=== PATIENT | male | born 1990 | race Caucasian/White ===

== ENCOUNTER 2018-04-04 16:18 | Emergency (ER) | payer SELFPAY ==
[2018-04-04 16:33] VITALS: BP 129/77; PULSE 77; TEMP 98.5; BMI 27.4
--- NOTE | 2018-04-04 17:00 | PDOC ---
History of Present Illness - History of Present Illness Initial Comments: 04/04/18 16:58 Physical exam: Alert and oriented well-developed well-nourished no acute distress cheerful and cooperative Afebrile, vital signs normal Head atraumatic. There is no evidence of a bruise, contusion, hematoma, abrasion , or laceration PERRLA 4 mm, fundi benign with sharp disc margins and good central venous pulsations. EOMs full without diplopia. Visual carrillo intact confrontation. ENT clear Neck without point tenderness or deformity, full range of motion without pain Chest clear CV regular without murmur or gallop Abdomen benign Neurological C2 to 12 intact. No focal sensory or motor deficits. Strength full and symmetric Impression: No sign of apparent injury to the head or neck, or the remainder of the body. Plan: Blood alcohol level was obtained at the request of the police, after obtaining the patient's written consent. Discharged with his supervising officers. <Landry Flower - Last Filed: 04/04/18 17:00> - History of Present Illness Initial Comments: Patient is a 27 year old male, who denies any significant PMHx, and was brought in handcuffs by [employer] for Blood Alcohol Content Testing. Patient states that he was was pulled over by the police and now he is here for a ROLANDO test. He told one of the police officers that he bumped his head when going into the police vehicle.But denies any current pain. He denies any h/o recent hospitalizations, illnesses, or other medical problems. Social Hx: drinks 3x/week. Smokes marijuana <Karmen Reyes - Last Filed: 04/04/18 17:06> - General Chief Complaint: Revisit, Lab Variance Stated Complaint: PT BROUGHT IN BY [employer] FOR BLOOD ALCO Time Seen by Provider: 04/04/18 16:49 Past History - Past Medical History COPD: No Other medical history: DENIES - Suicide/Smoking/Psychosocial Hx Smoking History: Never smoked Have you smoked in the past 12 months: No Information on smoking cessation initiated: No Hx Alcohol Use: Yes (3 TIMES/WEEK) Drug/Substance Use Hx: Yes (MARIJUANA) Substance Use Type: Alcohol, Marijuana <Landry Flower - Last Filed: 04/04/18 17:00> <Karmen Reyes Last Filed: 04/04/18 17:06> - Past Medical History Allergies/Adverse Reactions: Allergies Allergy/AdvReac Type Severity Reaction Status Date / Time No Known Allergies Allergy Unverified 04/04/18 16:21 Home Medications: Ambulatory Orders NK [No Known Home Medication] 04/04/18 Review of Systems - Review of Systems Comments:: CONSTITUTIONAL: Absent: fever, no chills, no fatigue EYES: Absent: visual changes ENT: Absent: ear pain, no sore throat CARDIOVASCULAR: Absent: chest pain, no palpitations RESPIRATORY: Absent: cough, no SOB GI: Absent: abdominal pain, no nausea, no vomiting, no constipation, no diarrhea GENITOURINARY: Absent: dysuria, no frequency, no hematuria MUSCULOSKELETAL: Absent: back pain, no arthralgia, no myalgia SKIN: Absent: rash <Karmen Reyes - Last Filed: 04/04/18 17:06> *Physical Exam - Vital Signs Last Vital Signs Temp Pulse Resp BP Pulse Ox 98.5 F 77 18 129/77 99 04/04/18 16:21 04/04/18 16:21 04/04/18 16:21 04/04/18 16:21 04/04/18 16:21 <Landry Flower - Last Filed: 04/04/18 17:00> - Vital Signs Last Vital Signs Temp Pulse Resp BP Pulse Ox 98.5 F 77 18 129/77 99 04/04/18 16:21 04/04/18 16:21 04/04/18 16:21 04/04/18 16:21 04/04/18 16:21 <Karmen Reyes - Last Filed: 04/04/18 17:06> *DC/Admit/Observation/Transfer - Discharge Dispostion Decision to Admit order: No <Landry Flower - Last Filed: 04/04/18 17:00> - Attestations Scribe Attestion: 04/04/18 17:04 Documentation prepared by Karmen Reyes, acting as electromedical equipment repairer for Landry Snow MD. <Karmne Reyes - Last Filed: 04/04/18 17:06> Diagnosis at time of Disposition: Head injury Qualifiers: Encounter type: initial encounter Qualified Code(s): S09.90XA - Unspecified injury of head, initial encounter - Discharge Dispostion Disposition: HOME Condition at time of disposition: Stable - Patient Instructions Printed Discharge Instructions: DI for Closed Head Injury
== END 2018-04-04 17:07 | disposition home or self-care (01) ==
LOC: FER 16:18
DX: Z02.83 Encounter for blood-alcohol and blood-drug test (principal); S09.90XA Unspecified injury of head, initial encounter; X58.XXXA Exposure to other specified factors, initial encounter; Y93.9 Activity, unspecified; Y92.410 Unspecified street and highway as the place of occurrence of the external cause
CPT/HCPCS: 36415; 80307; 99281-25